=== PATIENT | female | born 2000 | race Two or more races ===

== ENCOUNTER 2024-10-11 08:04 | Emergency (ER) | payer MEDICAID, SELFPAY ==
[2024-10-11 08:20] VITALS: BP 110/74; PULSE 87; RESP 16; TEMP 36.5; O2SAT 98; BMI 22.3
--- NOTE | 2024-10-11 10:02 | EDNOTE_ITS ---
<Statement entered by Quin Yi MD - 10/12/24 06:46> As co-signing physician, I was present and available for consult prn. I concur with the plan and care as documented by the midlevel provider. ED Back Injury Pain RME/HPI General Chief Complaint: Back Pain/Injury Stated Complaint: BACK PAIN SINCE INJURY YESTERDAY Time Seen by Provider: 10/11/24 08:41 Arrival date/time: 10/11/24 08:04 RME / HPI RME / HPI Narrative: 24-year-old patient presents emergency department with complaint of right lower back pain. Patient states that she bent over to pick up man an object that she dropped yesterday and all of a sudden got some tightness to her low back. She denies numbness and tingling shooting down to her distal right leg she denies bowel or bladder dysfunction. Pain is worse with flexion and extension of her lumbar spine. She denies painful urination Related Data Previous Rx's ?Medication ?Instructions ?Recorded cyclobenzaprine 10 mg tablet 10 mg PO HS 10 days #10 tabs 10/11/24 ibuprofen 600 mg tablet 600 mg PO TID #30 tabs 10/11/24 Allergies Allergy/AdvReac Type Severity Reaction Status Date / Time No Known Allergies Allergy Verified 10/11/24 08:07 Review of Systems Review of Systems Systems Reviewed: All systems reviewed, normal except as documented Constitutional Constitutional: Reports system reviewed and no additional complaints, except as documented Cardiovascular Cardiovascular: Reports system reviewed and no additional complaints, except as documented Respiratory Respiratory: Reports system reviewed and no additional complaints, except as documented Genitourinary Genitourinary: Reports system reviewed and no additional complaints, except as documented Musculoskeletal Musculoskeletal: Reports system reviewed and no additional complaints, except as documented ED Exam General General appearance: Present alert and in no apparent distress Head Head exam: Present atraumatic and normocephalic ENT ENT exam: Present normal exam and normal oropharynx Neck Neck exam: Present normal inspection and full ROM Chest Chest inspection: Present normal inspection Respiratory Respiratory exam: Present normal lung sounds bilaterally Cardiovascular Cardiovascular exam: Present regular rate Extremities Exam Extremities exam: Present full ROM Back Exam Back exam: Present tenderness, muscle spasm, paraspinal tenderness and vertebral tenderness; Absent CVA tenderness (R), CVA tenderness (L) or sciatic notch tenderness (R) Course Quality Measures none Orders Category Date Time Status Ketorolac Inj [Toradol Inj] Med 10/11/24 10:01 Once 30 mg IM X1 ONE Morphine Inj Med 10/11/24 10:01 Once 2 mg IM X1 ONE Vital Signs Vital signs: Vital Signs Temperature 97.7 F 10/11/24 08:20 Pulse Rate 87 10/11/24 08:20 Respiratory Rate 16 10/11/24 08:20 Blood Pressure 110/74 10/11/24 08:20 Pulse Oximetry (%) 98 10/11/24 08:20 Oxygen Delivery Method Room Air 10/11/24 08:20 Back Pain / Injury MDM Narrative MDM Narrative:: 24-year-old patient presents emergency department with lumbar pain status post bending over to pick up man something. Pain is worse with palpation of the affected site. Signs and symptoms appears consistent with back spasm/back strain patient is stable to DC home. Patient data External records reviewed:: None Clinical information provided by:: patient Social determinants that could affect healthcare access:: none Patient has the following chronic illnesses:: na How is presenting disease/condition affected by chronic disease/condition?: no chronic disease Evaluation data The following diagnostics were reviewed and interpreted by me:: other (specify) (na) Lab and/or radiology exams considered but not ordered:: na Interpretation Summary: na Medications / Prescriptions Medications or Prescriptions considered but not ordered:: Meds and prescriptions were considered and ordered Medication administrations:: na Consultations Consultation(s) initiated? (list below): No Diagnosis Differential diagnosis back pain/injury: lumbar radiculopathy, sciatica, strain of lumbar region, thoracic back pain and discitis Most likely diagnosis given after review of the tests above:: Lumbar sprain/lumbar spasm Admission Indicated Admission indicated?: not indicated Admission Request Was there a request for admission?: No Disposition Plan Disposition Plan: Discharge Discharge Attestation Discharge Attestation: The patient and all family members were given an opportunity to ask questions and understood the discharge instructions. Discharge instructions specifically effects, indications for sooner follow up or return to the emergency department, and the expected course of current diagnosis. Patient condition: Stable Discharge Plan Plan Patient Disposition: HOME (Self Care) Prescriptions/Referrals Prescriptions/Med Rec: New ibuprofen 600 mg tablet 600 mg PO TID Qty: 30 0RF cyclobenzaprine 10 mg tablet 10 mg PO HS 10 Days Qty: 10 0RF Problem List Clinical Impression: Strain of lumbar region Patient/Caregiver Discharge Instructions Education Materials: ED Back Sprain/Strain, Treating?Strains and Sprains, Lumbar Flexion (Flexibility), Lumbar Extension (Flexibility) Print Language: Sinhala Stand Alone Forms: Desirae Award Info., Patient Portal Info Letter
[2024-10-11] MEDS: KETOROLAC INJ 60 MG/2 ML VIAL 30 MG IM (10:54)
[2024-10-11] MEDS: MORPHINE SULF INJ 10 MG/ML VIAL 2 MG IM (10:54)
== END 2024-10-11 13:18 | disposition home or self-care (01) ==
PROVIDERS: Emergency Provider Emergency Medicine; PCP Family Medicine
DX: S33.5XXA Sprain of ligaments of lumbar spine, initial encounter (principal); X58.XXXA Exposure to other specified factors, initial encounter
CPT/HCPCS: 96372; 99284; J1885; J2270

== ENCOUNTER → 2025-02-25 | Outpatient (CLI) | payer OTHER, MEDICAID, SELFPAY ==
[2025-02-25 17:20] LABS: Misc Send Out* See Sep Rpt
[2025-02-28 19:52] LABS: Immunoglobulin A 169 mg/dL (47-310); Immunoglobulin G 1216 mg/dL (600-1640)
[2025-03-01 06:58] LABS: Immunoglobulin M 97 mg/dL (50-300)
== END | disposition home or self-care (01) ==
LOC: COPL 17:02
PROVIDERS: PCP Nurse Practitioner Family; Referring Provider Nurse Practitioner Family; Visit Provider Nurse Practitioner Family
DX: J35.01 Chronic tonsillitis (principal)
CPT/HCPCS: 36415; 82784